=== PATIENT | female | born 1985 ===

== ENCOUNTER → 2018-03-30 21:26 | Outpatient (REF) | payer OTHER, SELFPAY ==
[2018-03-30 21:51] LABS: Add Manual Diff / Slide Review NO; Basophils Percent Auto 0.4 % (0-2); Eosinophils Percent Auto 0.4 % (2-4); Hematocrit 42.7 % (36-46); Hemoglobin 14.1 g/dL (12.0-16.0); Lymphocytes Percent Auto 27.1 % (25-40); Mean Corpuscular HGB Conc 33.1 % (30-36); Mean Corpuscular Hemoglobin 32.4 PG (26-34); Mean Corpuscular Volume 97.9 fL (80-100); Neutrophils Absolute Auto 4000 /uL (3000-5900); Neutrophils Percent Auto 67.1 % (50-75); Platelet Count 214 X10^3/uL (150-400); Red Blood Cell Count 4.36 X10^6/uL (4.0-5.2); Red Cell Distribution Width 13.2 % (11.6-14.8); White Blood Cell Count 5.9 X10^3/uL (4.5-11.0)
[2018-03-30 22:31] LABS: Alanine Aminotransferase 27 IU/L (9-52); Albumin 4.6 g/dL (3.5-5.0); Albumin Globulin Ratio 1.6 (1.0-2.8); Alkaline Phosphatase 56 U/L (38-126); Aspartate Aminotransferase 24 IU/L (14-36); BUN Creatinine Ratio 16.7 (6-22); Bilirubin Total 0.7 mg/dL (0.2-1.3); Blood Urea Nitrogen 10 mg/dL (7-17); Calcium 9.6 mg/dL (8.4-10.2); Carbon Dioxide 26 mmol/L (22-32); Chloride 102 mmol/L (98-107); Estimated Glomerular Filt Rate > 60.0 mL/min (>60); Globulin 2.9 g/dL (1.7-4.1); Glucose 76 mg/dL (70-100); HEMOLYSIS 23 (0-50); Potassium 4.7 mmol/L (3.4-5.1); Sodium 143 mmol/L (137-145); Total Protein 7.5 g/dL (6.3-8.2)
[2018-03-30 23:35] LABS: Folate 9.7 ng/mL (2.76-20.0); Vitamin B12 659 pg/mL (239-931)
[2018-04-03 17:31] LABS: Anti Gliadin IgG Ab 2 U (<20); Gliadin Gluten IgA 6 U (<20)
== END ==
LOC: LAB 21:26
PROVIDERS: Visit Provider Naturopath
DX: R11.10 Vomiting, unspecified (principal); K58.2 Mixed irritable bowel syndrome; M79.7 Fibromyalgia; R42 Dizziness and giddiness
CPT/HCPCS: 80053; 82607; 82746; 83520; 85025

== ENCOUNTER → 2018-04-19 22:12 | Outpatient (REF) | payer OTHER, MEDICAID, SELFPAY | LOC: LAB 22:12 | PROVIDERS: Visit Provider Naturopath | DX: R11.10 Vomiting, unspecified (principal); K58.2 Mixed irritable bowel syndrome; M79.7 Fibromyalgia; R42 Dizziness and giddiness | CPT/HCPCS: 83013 ==

== ENCOUNTER → 2018-05-13 21:00 | Outpatient (REF) | payer OTHER, MEDICAID, SELFPAY ==
[2018-05-13 22:56] LABS: Alanine Aminotransferase 25 IU/L (9-52); Albumin 4.4 g/dL (3.5-5.0); Albumin Globulin Ratio 1.7 (1.0-2.8); Alkaline Phosphatase 45 U/L (38-126); Aspartate Aminotransferase 15 IU/L (14-36); BUN Creatinine Ratio 12.9 (6-22); Bilirubin Total 0.5 mg/dL (0.2-1.3); Blood Urea Nitrogen 9 mg/dL (7-17); Calcium 9.8 mg/dL (8.4-10.2); Carbon Dioxide 26 mmol/L (22-32); Chloride 106 mmol/L (98-107); Estimated Glomerular Filt Rate > 60.0 mL/min (>60); Globulin 2.6 g/dL (1.7-4.1); Glucose 80 mg/dL (70-100); HEMOLYSIS < 15 (0-50); Potassium 4.2 mmol/L (3.4-5.1); Sodium 144 mmol/L (137-145)
[2018-05-14 11:06] LABS: Luteinizing Hormone 6.13 mIU/mL
[2018-05-15 14:34] LABS: Dehydroepiandrosterone Sulfate 116 mcg/dL (23-266)
[2018-05-15 15:02] LABS: Progesterone 7.7 ng/mL
[2018-05-15 16:11] LABS: Sex Hormone Binding Globulin 29 nmol/L (17-124)
[2018-05-16 14:56] LABS: Testosterone Free 4.7 pg/mL (0.1-6.4); Testosterone Total 29 ng/dL (2-45)
== END ==
LOC: LAB 21:00
PROVIDERS: Visit Provider Naturopath
DX: N83.209 Unspecified ovarian cyst, unspecified side (principal); N94.10 Unspecified dyspareunia; R14.0 Abdominal distension (gaseous); N94.6 Dysmenorrhea, unspecified
CPT/HCPCS: 36415; 80053; 82627; 82670; 82677; 82679; 83001; 83002; 84144; 84270; 84402; 84403

== ENCOUNTER → 2018-05-27 21:33 | Outpatient (REF) | payer OTHER, MEDICAID, SELFPAY ==
[2018-05-29 19:02] LABS: Almond Allergy Class 0; Almond Allergy IgE < 0.10 kU/L (< 0.10); Cashew nut Allergy Class 0; Cashew nut Allergy IgE < 0.10 kU/L (< 0.10); Codfish Allergy Class 0; Codfish Allergy IgE < 0.10 kU/L (< 0.10); Cow Milk Allergy Class 0; Cow Milk Allergy IgE < 0.10 kU/L (< 0.10); Egg Whites IgE < 0.10 kU/L (< 0.10); Hazelnut Allergy Class 0; Hazelnut Allergy IgE < 0.10 kU/L (< 0.10); Peanut Allergy Class 0; Peanut Allergy IgE < 0.10 kU/L (< 0.10); Salmon Allergy Class 0; Salmon Allergy IgE < 0.10 kU/L (< 0.10); Scallop Allergy Class 0; Scallop Allergy IgE < 0.10 kU/L (< 0.10); Sesame seed Allergy Class 0; Sesame seed Allergy IgE < 0.10 kU/L (< 0.10); Shrimp Allergy IgE 0.16 kU/L (< 0.10); Soybean Allergy Class 0; Soybean Allergy IgE < 0.10 kU/L (< 0.10); Tuna Allergy Class 0; Tuna Allergy IgE < 0.10 kU/L (< 0.10); Walnut Allergy Class 0; Walnut Allery IgE < 0.10 kU/L (< 0.10); Wheat Allergy Class 0; Wheat Allergy IgE < 0.10 kU/L (< 0.10)
== END ==
LOC: LAB 21:33
PROVIDERS: Visit Provider Naturopath
DX: R11.2 Nausea with vomiting, unspecified (principal); R63.4 Abnormal weight loss; K58.2 Mixed irritable bowel syndrome; K21.9 Gastro-esophageal reflux disease without esophagitis
CPT/HCPCS: 36415; 86003

== ENCOUNTER → 2018-06-03 22:26 | Outpatient (REF) | payer OTHER, MEDICAID, SELFPAY | LOC: LAB 22:26 | PROVIDERS: Visit Provider Naturopath | DX: Z12.4 Encounter for screening for malignant neoplasm of cervix (principal) ==

== ENCOUNTER → 2018-07-20 11:29 | Outpatient (REF) | payer OTHER, MEDICAID, SELFPAY | LOC: LAB 11:29 | PROVIDERS: Visit Provider Naturopath | DX: N76.0 Acute vaginitis (principal) ==

== ENCOUNTER → 2018-07-30 23:00 | Outpatient (REF) | payer OTHER, MEDICAID, SELFPAY ==
[2018-07-30 23:16] LABS: RBC Urine None Seen (0-5/HPF); WBC Urine None Seen (0-5/HPF)
[2018-07-31 01:27] LABS: Appearance Urine UA CLEAR; Bilirubin Urine UA NEGATIVE (NEGATIVE); Color Urine UA YELLOW; Glucose Urine UA NEGATIVE (Negative); Ketones Urine UA NEGATIVE (NEGATIVE); Leukocyte Esterase Urine UA NEGATIVE (NEGATIVE); Nitrite Urine UA NEGATIVE (Negative); Occult Blood Urine UA NEGATIVE (Negative); Protein Urine UA NEGATIVE (Negative); Specific Gravity Urine UA 1.015 (1.000-1.035); Urobilinogen Urine UA 0.2 E.U./dL (0.2); pH Urine UA 8.5 (4.5-8.0)
[2018-07-31 01:47] LABS: Add Manual Diff / Slide Review NO; Basophils Absolute Auto 0 /uL (0-100); Basophils Percent Auto 0.4 % (0-2); Eosinophils Absolute Auto 0 /uL (0-450); Eosinophils Percent Auto 0.8 % (2-4); Hematocrit 42.5 % (36-46); Hemoglobin 13.8 g/dL (12.0-16.0); Lymphocytes Absolute Auto 1500 /uL (1100-4500); Lymphocytes Percent Auto 42.6 % (25-40); Mean Corpuscular HGB Conc 32.5 % (30-36); Mean Corpuscular Hemoglobin 31.7 PG (26-34); Mean Corpuscular Volume 97.5 fL (80-100); Monocytes Absolute Auto 200 /uL (0-900); Neutrophils Absolute Auto 1900 /uL (1500-7000); Neutrophils Percent Auto 51.2 % (50-75); Platelet Count 214 X10^3/uL (150-400); Red Blood Cell Count 4.36 X10^6/uL (4.0-5.2); Red Cell Distribution Width 13.4 % (11.6-14.8); White Blood Cell Count 3.6 X10^3/uL (4.5-11.0)
[2018-07-31 01:56] LABS: Bacteria Urine Few (2-10); Culture Indicated Urine Cult Not Indicated; Squamous Epithelial Cell Urine 1-5 /HPF
[2018-07-31 03:56] LABS: Alanine Aminotransferase 26 IU/L (9-52); Albumin 4.4 g/dL (3.5-5.0); Albumin Globulin Ratio 1.6 (1.0-2.8); Alkaline Phosphatase 44 U/L (38-126); Aspartate Aminotransferase 16 IU/L (14-36); BUN Creatinine Ratio 11.7 (6-22); Bilirubin Total 0.4 mg/dL (0.2-1.3); Blood Urea Nitrogen 7 mg/dL (7-17); Calcium 9.7 mg/dL (8.4-10.2); Carbon Dioxide 31 mmol/L (22-32); Chloride 99 mmol/L (98-107); Estimated Glomerular Filt Rate > 60.0 mL/min (>60); Globulin 2.8 g/dL (1.7-4.1); Glucose 88 mg/dL (70-100); HEMOLYSIS < 15 (0-50); Potassium 4.7 mmol/L (3.4-5.1); Sodium 139 mmol/L (137-145); Total Protein 7.2 g/dL (6.3-8.2)
[2018-07-31 04:08] LABS: C-Reactive Protein Quant < 0.5 mg/dL (<1.0)
[2018-08-02 12:30] LABS: Complement C3 94 mg/dL (83-193)
[2018-08-02 17:08] LABS: ANA Screen, IFA Negative (Negative)
[2018-08-02 20:52] LABS: ANCA Screen Negative (Negative)
[2018-08-05 12:05] LABS: Centromere B Antibody <1.0 NEG AI (<1.0 Negative); DNA (DS) Antibody 7 IU/mL (< 5)
== END ==
LOC: LAB 23:00
PROVIDERS: Visit Provider Naturopath
DX: N39.0 Urinary tract infection, site not specified (principal); M79.7 Fibromyalgia; R11.2 Nausea with vomiting, unspecified; N94.10 Unspecified dyspareunia
CPT/HCPCS: 36415; 80053; 81001; 82784; 83516; 85025; 86021; 86038; 86140; 86160; 86200; 86225; 86235